=== PATIENT | female | born 1985 | race Caucasian/White ===

== ENCOUNTER → 2019-02-09 15:50 | Outpatient (CLI) | payer OTHER, SELFPAY ==
[2017-05-04 19:06] VITALS: BMI 24.1
[2019-02-09 22:08] LABS: Chlamydia Trachomatis by PCR Negative (Negative); Neisserai gonorrhoeae by PCR Negative (Negative); Probe Check PASS; Sample Adequacy Control PASS; Specimen Processing Control PASS
[2019-02-14 16:10] LABS: HPV Reflexed? NOT INDICATED
== END ==
PROVIDERS: Visit Provider Obstetrics & Gynecology
DX: Z12.4 Encounter for screening for malignant neoplasm of cervix (principal); Z11.3 Encounter for screening for infections with a predominantly sexual mode of transmission
CPT/HCPCS: 87491; 87591; 87624; 88175; G0145

== ENCOUNTER → 2019-02-15 | Outpatient (CLI) | payer OTHER, SELFPAY ==
[2017-05-04 19:06] VITALS: BMI 24.1
[2019-02-15 13:51] LABS: Absolute Lymphocyte Count 1.45 X10^3/ul (0.83-4.51); Absolute Neutrophil Count 4.3 X10^3/uL (2.0-7.7); Basophil# 0.02 X10^3/uL; Basophil% 0.3 % (0-1); Eosinophil# 0.06 X10^3/uL; Hematocrit 37.6 % (37-47); Hemoglobin 12.7 g/dl (12.0-15.0); Lymphocyte # 1.45 X10^3/ul (4.0); Lymphocyte % 23.1 % (19-41); Mean Corp Hgb Conc 33.8 g/gl (32-36); Mean Corpuscular Hgb 28.3 pg (27.0-32.0); Mean Corpuscular Volume 83.9 fL (81-99); Mean Platelet Vol. 9.8 fl (6.2-12.0); Monocyte# 0.46 X10^3/uL; Monocyte% 7.3 % (0-10); Neutrophil # 4.27 X10^3/uL (2.7-7.7); Neutrophil % 68.1 % (47-70); Platelet Count 313 K/mm3 (150-450); RBC Distribution Width CV 13.5 % (11.6-14.6); RBC Distribution Width SD 40.7 fl (35.1-43.9); Red Blood Count 4.48 M/mm3 (4.2-5.4); White Blood Count 6.3 K/mm3 (4.4-11.0)
[2019-02-15 13:52] LABS: Color, Urine Yellow (Yellow); Glucose, Dipstick Normal (Normal); Ketone-Dipstick Negative (Negative); Leukocyte Esterase-Dipstick Negative /ul (Negative); Nitrite-Dipstick Negative (Negative); Occult Blood-Urine Negative /ul (Negative); POSITIVE COUNT NO; POSITIVE DIFFERENTIAL NO; POSITIVE MORPHOLOGY NO; Protein-Dipstick Negative (Negative); Specific Gravity, Urine 1.005 (1.002-1.030); Urine Bilirubin Dipstick Negative (Negative); Urine Clarity Clear (Clear); Urine Urobilinogen Normal (Normal)
[2019-02-15 14:01] LABS: COTININE Drug Screen Negative (<200 ng/mL)
[2019-02-15 14:05] LABS: Amphetamine Urine VISTA NEGATIVE (<1000 ng/mL); Barbiturate Urine VISTA NEGATIVE (< 200 ng/mL); Benzodiazepine Urine VISTA NEGATIVE (< 200 ng/mL); Cocaine Urine VISTA NEGATIVE (< 300 ng/mL); Ecstacy Urine VISTA NEGATIVE (< 500 ng/mL); Methadone Urine VISTA NEGATIVE (< 300 ng/mL); PCP Urine VISTA NEGATIVE (< 25 ng/mL); THC Urine VISTA NEGATIVE (< 50 ng/mL); Vista UDS pH Range 6
[2019-02-15 14:14] LABS: Thyroid Stim Hormone (TSH) 0.84 uIU/mL (0.358-3.74)
[2019-02-15 14:52] LABS: HIV - WCH Non-Reactive (Nonreactive); Rubella IgG 334.5 IU/mL; Vitamin D,25 Hydroxy 19.5 ng/mL (29.95-100.01)
[2019-02-16 09:12] LABS: HEPATITIS B SURFACE AG Negative (Negative); Hep C Antibodies <0.1 s/co ratio (0.0-0.9)
[2019-02-17 02:32] LABS: Prenatal RPR NONREACTIVE (NONREACTIVE)
== END | disposition home or self-care (01) ==
LOC: WOBLAB 11:54
PROVIDERS: Visit Provider Obstetrics & Gynecology
DX: Z34.81 Encounter for supervision of other normal pregnancy, first trimester (principal)
CPT/HCPCS: 36415; 80307; 81002; 82306; 84443; 85025; 86703; 86762; 86803; 87340

== ENCOUNTER 2019-09-27 05:32 | Inpatient (IN) | payer OTHER, SELFPAY ==
--- NOTE | 2019-09-26 20:03 | PCM.HP.BLA ---
History and Physical Date of Admission: 09/27/19 [facility] [place] PHYSICAL (09/26/2019) Name: JORGE HAYSINE History of this : This is a 33 yo pt who presents for her second at 39 weeks gestation. PNC unremarkable. OB Physician: KORY 's Physician: RAY Preston.................................................................... : 1985 Age: 33 Address: [address] [place] [address] Phone: (h) [phone] ([phone] Insurance Carrier: [employer] [id number] Emergency Contact: BASIA HAYS [phone] ...................................................................... Final JALYN: 10/03/19 By Ultrasound: 7 weeks 1 day PARITY: (G-Total Pregnancies P-Fullterm,Premature,Induced AB,Spont AB, Ectopics, Multiple,Living) JALYN CONFIRMATION: By LMP: 12/22/18 Initial Exam: 09/28/19 By First Ultrasound Exam: 10/03/19 Final JALYN: 10/03/19 OB PROBLEM LIST: Declines AFP and CF. EPDS 2. Prior CS, --plan repeat Slight dilation renal pelvices at 20 weeks; recheck u/s at 28-32 weeks --right renal pelvis 6.5 mm at 31 weeks ALLERGIES: mejia Facial swelling No Known Drug Allergies Strattera Severe nausea & vomiting MEDICATIONS: 28 mg iron-800 mcg tablet One pill by mouth once a day Unisom (doxylamine) 25 mg tablet One pill by mouth once a day prn with Vit B6 50 mg SOCIAL HISTORY: Smoking - Never Alcohol Use - occasionally not while Diet - moderate, balanced diet, caffeine < 2 drinks per day and Water intake usually tries for 4 16oz bottles of water daily. 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 Illicit Drug Use - denies use of street drugs Sexual Activity - Residence - owns a home Place of - [place] Hours Worked - 50 hours per week Spouse-Sig Other Name - Basia Spouse-Sig Other Occupation - [employer] Spouse-Sig Other Phone No - [phone] Children Name(s) - Agustin PRIOR DELIVERY HISTORY DEL DATE GEST LAB WT LB WT OZ TYPE ANES LABOR TX 20 Mar 15 41 24 8 0 C-Sec Epidural No ANTEPARTUM FLOW CHART VISIT GE RTC FU F F TN U U DATE WK MD WKS HT PN HR M SS BP ED WT TN GL D EF ST __ ____ ___ __ __ ___ __ __ __ ___ __ __ __ ___ __ 21 Aug JMW 1 37 + + 116/68 sl 167 - - Aug KW 1 36 + + 124/84 tr 166 - - Aug JMW 1 35 + + 108/72 0 164 tr - Jul JMW 2 33 + + 112/74 sl 163 - - Aug 29 JMW 3 31 + + 116/70 0 160 - - Jul 27 JMW 3 28 + + 114/64 0 159 - - Jun 22 JMW 4 24 + + 98/60 0 155 - - May 19 JMW 4 20 + + 124/78 0 150 - - Apr 14 JMW 4 16 + + 96/54 0 144 - - Mar 10 JMW 4 + ? 100/64 0 141 - - Feb 03 JMW 5 U+ US 116/72 0 136 - - ANTEPARTUM NOTE(S): Sep 19 2019: Doing Well Sep 11 2019: Ctxs-occas, Good FM Sep 04 2019: Doing Well, Good FM Aug 21 2019: see note, no ctxs now Aug 02 2019: round ligament pain, doing well Jul 11 2019: Doing Well, 1hrGTT/CBC today Jun 13 2019: Glucola/Instructions Given,Good FM,Sleeping Better May 17 2019: Sono Today,Good FM,Feeling Well Apr 18 2019: Doing Well, Declines AFP Mar 21 2019: Periodic nausea continues Feb 15 2019: Sono, NOB and PNV COMPREHENSIVE ANTEPARTUM NOTE(S): Sep 11 2019: Feeling well; reports active FM; denies VB, LOF; feeling frequent UC s, VE per pt request /-3, medium consistency, posterior; discussed warning signs, s/s Labor, when to call, come in; RTO 2 weeks for PNV - KVW Sep 08 2019: Masha is here for a add on NST for decreased FM at 36 w 3 d. She reports that some decreased FM last evening, but she noticed it more this morning; she has felt a few more movements since I called in today. EEFM/NST explained. She denies spotting, and states that she notes some occasional mild cramping especially when my bladder is full. No edema noted. NST reactive, read per Dr. Conti. AW Sep 04 2019: Masha is here for a appointment. Baby is moving good and no swelling is reported. Urine came back as tr -. Masha reports an incident that happened at her workplace today. She says that she got very light headed and dizzy feeling, the nurse checked BP which was fine. After she ate and rested she felt better. Also reported a rash that is very itchy and irregular BM's. MK Aug 21 2019: Pt is being seen for PNV. She complains of swelling in her face, almost as she was pumped with fluids. She also states she was vomiting Wednesday08-19-19 and had a temp no higher than 100.2 which tylenol brought down. She also complains of lower back and pelvic pain. She also woke up with sharp pain in her frontal portion of head. She will be leaving this week for [place] and wants to make sure it is still fine for her to go. Cervical check preferred. AM Apr 18 2019: Pt presents for her PNV. She is reporting +FM noted daily. Pt is c/o constipation and I reviewed the importance of a minimum of 1gal H20 daily as well as may add Colace 1 qd to aid with this. She is also noting some mild muscle cramps in her lower back/calves and discussed that she likely just needs to increase her fluids. Pt agreeable to same. JT Feb 15 2019: Masha is here for NOB nurse visit with JALYN 10-03-2019 planning a RCS at [facility] with spinal, using Dr Rush for post disch ped care and to breastfeed. Masha is a G 2 P 1 who is to Basia. 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 Their son Agustin is almost 2y. They are pleased about the pg. Masha is allergic to Strattera (taken in high school) and mejia. She has no latex allergy. She does have some seasonal allergies. Her diet is well balanced and she states I try to eat clean. She has one cup of coffee today and about 4 16 oz bottles of water daily. Advised increasing fluids to close to one gal daily wild when the weather gets warmer. She is a lifetime non smoker, occ drinks alcohol but not in pg and denies street drug use. She does regular exercise. Genetics Screening form completed noting no family issues and she declines AFP and CF tests. Warning signs in pg reviewed along with otc meds ok to take, lifting restriction of 20-25#, wearing seatbelt very low on her abdomen, importance of protein in her diet and reaching our office after hours w understanding voiced. She has a copy of What to Expect. US and routine labs drawn today. She's had chickenpox and they have no cats. She is aware of litter box issues. EPDS score 2. Enc to call w any concerns. Visit took approx 45 min. Annalise DUONG. NEW Feb 10 2019: GC and chlamydia NEG EB Feb 09 2019: ok Feb 09 2019: Masha presents here today for Missed Menses appointment. 33 y.o. G 2 P 1 non-smoker with regular menses and LMP of 12-22-18 lasting her average of 5 days. UPT is positive today in our Office. Presents at 7 weeks by LMP with an approximate JALYN of 09-28-19. Plans to have repeat at [facility]. Reports having daily nausea and taking Unisom with Vitamin B6 and is helping, as well as daily fatigue and tender breasts. Currently taking an OTC Vitamin and Educational Materials given. History of normal pap screening with last in 2015. Medication list up-dated. PAVAN REVIEW OF SYSTEMS: GENERAL - Denies fever, or chills SKIN - Denies rash, new skin lesions, or change in moles EYES - Denies blurred vision, or change in visual acuity EARS - Denies ear pain, or difficulty hearing NOSE - Denies nasal congestion, discharge, or bleeding MOUTH - Denies sore throat, or difficulty swallowing NECK - Denies pain or swelling RESPIRATORY - Denies shortness of breath, cough, wheezing CARDIOVASCULAR - Denies palpitations, chest pain, orthopnea, PND, peripheral edema, syncope or claudication GASTROINTESTINAL - Denies nausea, vomiting, diarrhea, constipation, Denies abdominal pain, melena and or bright red blood GENITOURINARY - Denies dysuria, frequency of urination, urgency, or hesitancy MUSCULOSKELETAL - Denies joint or muscle pain, or back pain NEUROLOGICAL - Denies localized numbness, weakness, or tingling PSYCHIATRIC - Denies depression, anxiety, substance abuse or suicide attempts ENDOCRINE - Denies heat or cold intolerance, weight loss or gain, increasing thirst HEMATO-IMMUNOLOGIC - Denies easy bruising, bleeding, oral ulcerations or recurrent infections GENETICS SCREENING: Age 35+ years: No Thalassemia: No Neural Tube Defect: No Down Syndrome: No VIOLET-SACHS: No Sickle Cell Disease: No Hemophilia: No Musc. Dystrophy: No Cystic Fibrosis: No-declines screening [place] Chorea: No Mental Retardation: No Fragile X: No Other genetic: No Other defects: No SABs/still births: No Drugs since LMP: No INFECTION HISTORY: High risk AIDS: No High risk Hepatitis: No Exposed to TB: No Exposed to Herpes: No Rash/viral illness since LMP: No History of STD: No MENSTRUAL HISTORY: *Menses Amount/Duration: 3-7 daysMenses Regularity: regularFrequency: monthlyMenarche (Age Onset): 16* PAST SUMMARY: PARITY: 1. Total Pregnancies............ 2 2. Full Term Pregnancies........ 1 3. Premature.................... 0 4. Abortions - Induced.......... 0 5. Abortions - Spontaneous...... 0 6. Ectopics..................... 0 7. Multiple Births.............. 0 8. Living Children.............. 1 PAST #1: Date of :.................. 03/18/17 Gestation Weeks:................ 41 Length of labor(hours):......... 24 Sex:............................ M Weight-lbs:............... 8 Weight-oz:................ 0 Type of Delivery:............... C-Sect Type of Anesthesia:............. Epidural Place of Delivery:.............. [place] Treatment of Labor?:.... No Comment: NO PHYSICAL EXAMINATION General Appearence: 33 yo female in no acute distress Vital Signs: AF, VSS Heart: RRR without rubs or gallops Lungs: CTA x 2 Breasts: deferred Abdomen: gravid Pelvis: Cervix: not examined Presentation: cephalic Station: not examined Fetus: Size: AGA Movement: present Heart: present Labs for : MASHA HAYS since 01/06/2019 ORDER DATEIN DESCRIPTION VALUE UNITS RANGE A+ COMMENT GLUCOSE CHALLENGE 50GM 1 HOUR 07/11/19 NOTE Original Ordering Provider: PRAVIN CONTI GLUCOSE CHALLENGE 50GM 1 HOUR GLUCOSE CHALLENGE 50 GMS 1 HOUR GLUCOSE 1HR 66 mg/dl 70 - 140 L Reviewed by GLORIA CBC + DIFF 07/11/19 NOTE Original Ordering Provider: PRAVIN CONTI CBC + DIFF CBC-COMPLETE BLOOD COUNT WBC 8.2 x 10EE3/UL 4.5 - 10.8 RBC 4.00 x 10EE6/UL 4.10 - 5.30 L HEMOGLOBIN 11.0 g/dl 12.0 - 16.0 L HEMATOCRIT 32.7 % 34.0 - 46.0 L MCV 82 fl 80 - 99 MCH 28 pg 27 - 33 MCHC 34 X10 3 32 - 36 RDW/CV 14.6 % 12.0 - 15.6 PLATELET 283 x10EE3/UL 150 - 450 MPV 8.0 fl 6.6 - 10.5 AUTOMATED DIFFERENTIAL NEUT % 79.8 % 46.0 - 76.0 H LYMPH % 13.3 % 20.0 - 45.0 L MONOS % 6.0 % 0.0 - 10.0 EO % 0.4 % 0.0 - 7.0 BASO % 0.5 % 0.0 - 2.0 LYMPH # 1.10 x10EE3/UL 0.80 - 2.80 NEUT # 6.60 x10EE3/UL 1.50 - 7.10 MONO # 0.50 x10EE3/UL 0.20 - 1.00 EO # 0.00 x10EE3/UL 0.00 - 0.50 BASO # 0.00 x10EE3/UL 0.00 - 0.10 MANUAL DIFF N/A MORPHOLOGY N/A Reviewed by GLORIA RPR 02/15/19 NOTE Original Ordering Provider: Pravin Conti RPR NONREACTIVE NONREACTIVE Reviewed by ZEESHAN HEPATITIS C ANTIBODIES 02/15/19 NOTE Original Ordering Provider: Pravin Conti HEP C AB <0.1 s/co ratio 0.0-0.9 Negative: < 0.8 Indeterminate: 0.8 - 0.9 Positive: > 0.9 The CDC recommends that a positive HCV antibody result be followed up with a HCV Nucleic Acid Amplification test (977009). Reviewed by PRAVIN HEPATITIS B SURFACE AG 02/15/19 NOTE Original Ordering Provider: Pravin Conti HB SURF AG Negative Negative Performed at: [address] [id number] Director Of Consulting Services: Addison Galindo PhD, Phone: [phone] Reviewed by PRAVIN MAGAÑA T AND S-NO CHARGE W/PNP 02/15/19 Reason for Type AND Screen/Red Cells: Surgery? [facility]~[address] [place], [address]~ BLOOD TYPE GEL O POSITIVE N AB SCREEN GEL NEGATIVE N Reviewed by PRAVIN HIV - [facility] 02/15/19 NOTE Original Ordering Provider: Pravin Conti HIV - [facility] Non-Reactive Nonreactive Reviewed by PRAVIN RUBELLA IGG 02/15/19 NOTE Original Ordering Provider: Pravin Conti RUBELLA IGG 334.5 IU/mL Antibody results Interpretation of Immune Status < 5 IU/ml Presumed Non-immune 5 - < 10 IU/ml Equivocal > or = 10 IU/ml Presumed Immune Reviewed by PRAVIN VITAMIN D,25 HYDROXY 02/15/19 NOTE Original Ordering Provider: Pravin Conti VITAMIN D 25-OH 19.5 ng/mL 29.95-100.01 L Vitamin D 25(OH) Status Range Deficiency <20 ng/mL (50nmol/L) Insufficiency 20 - 30 ng/mL (50 - 75 nmol/L) Sufficiency 30 - 100 ng/mL (75 - 250 nmol/L) Toxicity >100 ng/mL (>250 nmol/L) Reviewed by PRAVIN THYROID STIM HORMONE (TSH) 02/15/19 NOTE Original Ordering Provider: Pravin Conti TSH 0.84 uIU/mL 0.358-3.74 Reviewed by PRAVIN NICOTINE URINE DRUG SCREEN 02/15/19 NOTE Original Ordering Provider: Pravin Conti TO BE CONFIRMED CONFIRMATORY TESTING FOR ALL POSITIVE URINE DRUG SCREEN RESULTS WILL ONLY BE SENT OUT UPON PHYSICIAN ORDER. The results of Urine Drug Screen methods provide only preliminary analytical test results. A more specific alternate chemical method must be used in order to obtain a confirmed analytical result. Gas chromatography/mass spectrometery (GC/MS) is the preferred confirmatory method. Clinical consideration and professional judgement should be applied to any drug of abuse test result, particularly when preliminary positive results are used. COT DRG SCREEN Negative <200 ng/mL Cotinine is the first-stage metabolite of Nicotine. Reviewed by PRAVIN URINE DRUG SCREEN (VISTA) 02/15/19 NOTE Original Ordering Provider: Pravin Conti TO BE CONFIRMED CONFIRMATORY TESTING FOR ALL POSITIVE URINE DRUG SCREEN RESULTS WILL ONLY BE SENT OUT UPON PHYSICIAN ORDER. VISTA Urine Drug Screen methods provide only preliminary analytical test results. A more specific alternate chemical method must be used in order to obtain a confirmed analytical result. Gas chromatography/mass spectrometery (GC/MS) is the preferred confirmatory method. Clinical consideration and professional judgement should be applied to any drug of abuse test result, particularly when preliminary positive results are used. URINE TCA TESTING MUST BE ORDERED SEPARATELY. USE TEST MNEMONIC: [place] UDS PH 6 AMPHETAMINES NEGATIVE <1000 ng/mL BARBITIURATES NEGATIVE < 200 ng/mL BENZODIAZIPINE NEGATIVE < 200 ng/mL COCAINE NEGATIVE < 300 ng/mL ECSTACY NEGATIVE < 500 ng/mL METHADONE NEGATIVE < 300 ng/mL OPIATES NEGATIVE < 300 ng/mL PCP NEGATIVE < 25 ng/mL THC NEGATIVE < 50 ng/mL Reviewed by PRAVIN URINALYSIS, ROUTINE (DIPSTICK) 02/15/19 NOTE Original Ordering Provider: Pravin Conti COLOR Yellow Yellow CLARITY Clear Clear GLUCOSE, UR Normal mg/dl Normal BILIRUBIN URINE Negative mg/dL Negative KETONE UR Negative mg/dl Negative SP.GR. DIPSTX 1.005 1.002-1.030 PH UR 7.0 5.0 - 8.0 PROT DIPSTX Negative mg/dl Negative UROBILI Normal mg/dl Normal NITRITE UR Negative Negative OCCULT BLOOD-UR Negative /ul Negative LEUK ESTERASE Negative /ul Negative Reviewed by PRAVIN CBC W/DIFF, AUTOMATED 02/15/19 NOTE Original Ordering Provider: Pravin Conti WBC 6.3 K/mm3 4.4-11.0 RBC 4.48 M/mm3 4.2-5.4 HGB 12.7 g/dl 12.0-15.0 HCT 37.6 % 37-47 MCV 83.9 fL 81-99 MCH 28.3 pg 27.0-32.0 MCHC 33.8 g/gl 32-36 RDW CV 13.5 % 11.6-14.6 RDW SD 40.7 fl 35.1-43.9 PLT 313 K/mm3 150-450 MPV 9.8 fl 6.2-12.0 NEUT% 68.1 % 47-70 LY% 23.1 % 19-41 MONO% 7.3 % 0-10 EO% 1.0 % 0-5 BASO% 0.3 % 0-1 IM GRAN % 0.200 % 0.0-0.9 IG% - Immature Granulocytes (promyelocytes, myelocytes and metamyelocytes) > 1% indicates that a LEFT SHIFT is Present. ABSOLUTE NEUT 4.3 X10 3/uL 2.0-7.7 ABSOLUTE LYMPH 1.45 X10 3/ul 0.83-4.51 Reviewed by PRAVIN PAP IG W/REFLEX HR HPV APTIMA 02/09/19 NOTE Original Ordering Provider: Pravin Conti DIAGN . NEGATIVE FOR INTRAEPITHELIAL LESION OR MALIGNANCY. ADEQ . Satisfactory for evaluation. Endocervical and/or squamous metaplastic cells (endocervical component) are present. PERFORM . Zohreh Oropeza Cryptologic Technician Technical (ASCP) TEST METHOD . This liquid based ThinPrep(R) pap test was screened with the use of an image guided system. COMM . . PAPSMR . The Pap smear is a screening test designed to aid in the detection of premalignant and malignant conditions of the uterine cervix. It is not a diagnostic procedure and should not be used as the sole means of detecting cervical cancer. Both false-positive and false-negative reports do occur. HPV RFLX . The HPV DNA reflex criteria were not met with this specimen result therefore, no HPV testing was performed. Performed at: [address] [id number] Director Of Consulting Services: Elvira King MD, Phone: [phone] Reviewed by PRAVIN NASH/KIKA [facility] BY PCR 02/09/19 NOTE Original Ordering Provider: Pravin MENON [facility] PCR Negative Negative [facility] BY PCR Negative Negative Reviewed by JENNIFER Impression /Plan: 39 week intrauterine for repeat . Preparations in progress for delivery.
[2019-09-27] VITALS (22 sets, daily range): BP systolic 102–121; BP diastolic 57–80; PULSE 58–96; RESP 14–18; TEMP 36.3–36.9; O2SAT 95–100; BMI 27.8
[2019-09-27] MEDS: Lactated Ringers 1,000 ML 999 ML IV (05:50)
[2019-09-27 06:48] LABS: Absolute Lymphocyte Count 1.74 X10^3/uL (0.83-4.51); Basophil# 0.04 X10^3/uL; Basophil% 0.5 % (0-1); Eosinophil# 0.21 X10^3/uL; Eosinophils% 2.4 % (0-5); Hematocrit 38.6 % (37-47); Hemoglobin 12.5 g/dL (12.0-15.0); Lymphocyte # 1.74 X10^3/ul (4.0); Lymphocyte % 20.1 % (19-41); Mean Corp Hgb Conc 32.4 g/dL (32-36); Mean Corpuscular Hgb 26.9 pg (27.0-32.0); Mean Corpuscular Volume 83.2 fL (81-99); Mean Platelet Vol. 10.4 fl (6.2-12.0); Monocyte# 0.66 X10^3/uL; Monocyte% 7.6 % (0-10); NRBC Flagged by Analyzer 0 % (0-5); Neutrophil # 5.98 X10^3/uL (2.7-7.7); Neutrophil % 68.9 % (47-70); Platelet Count 226 K/mm3 (150-450); RBC Distribution Width CV 15.5 % (11.6-14.6); RBC Distribution Width SD 46.1 fl (35.1-43.9); Red Blood Count 4.64 M/mm3 (4.2-5.4); White Blood Count 8.7 K/mm3 (4.4-11.0)
[2019-09-27] MEDS: Sodium Citrate/Citric Acid 30 ML UDC PO (07:03)
[2019-09-27] MEDS: Cefazolin 2 GM in 0.9% Normal Saline 100 ML IV (07:04)
--- NOTE | 2019-09-27 08:25 | PCM.OPRPT ---
Report of Operation Date of Procedure: 09/27/19 Pre-Operative Diagnosis: Prior Section Post-Operative Diagnosis: Prior Section Surgery/Procedure Performed:: Repeat Low Transverse Cervical Section Description of Surgical Findings:: Viable male with Apgars of 8/9 in an occiput anterior presentation with clear amniotic fluid and umbilical cord tangled around the baby's feet. strategic debriefing specialist: Charbel Fonseca Type of Anesthesia:: Spinal - With Duramorph Anesthesiologist: Mily Klein Specimen's removed: [facility] Drains: Rubio to straight drain Estimated Blood Loss (mL): 500 cc Fluids Replaced: Crystalloid Description of Procedure: Surgeon: Silviano Conti MD, FACOG Indication: This is a 33-year-old who presents for her second at 39+ weeks gestation. care has otherwise been uneventful. The patient has been counseled regarding the risk and indications of this procedure including the possibility of bleeding infection and injury to surrounding structures such as bowel bladder. All questions were answered. Procedure: Patient was taken to the operating room where after spinal anesthesia was placed, the patient was prepped and draped in usual sterile fashion and a Rubio catheter was placed. The abdomen was entered through the patient's prior Pfannenstiel incision and peritoneum was entered bluntly. After developing a bladder flap on the lower uterine segment a low transverse incision was made on the uterus and head which was low was easily delivered onto the operative field with the assistance of a Kiwi vacuum suction. The nose mouth and oropharynx were bulb suctioned. Subsequently a viable male infant was born with Apgars of 8/9. The was noted to cry move all extremities vigorously on the operative field. The umbilical cord was doubly clamped and ligated and infant handed to the nursery personnel who were present for the delivery. Placenta was delivered and noted to be 3 vessels and normal. Uterus was exteriorized and remaining placental tissue was removed. The uterus was then closed in 2 layers first with running locked 0 Vicryl suture followed by a second imbricating layer with 0 Vicryl suture. 0 Vicryl suture was then used in a horizontal mattress interrupted fashion to affect final hemostasis of the uterine incision line. Normal fallopian tubes and ovaries were visualized and the uterus was returned to the pelvis. Hemostasis was noted and rectus abdominis muscles were reapproximated in the midline with interrupted Number 0 Vicryl suture in a horizontal mattress fashion. Fascia was closed with running Number 1 PDS Strata fix suture. Subcutaneous tissue was irrigated with copious amounts of saline solution and then closed with running 3-0 Vicryl suture. Skin was closed with 4-0 monocryl suture in a running subcuticular fashion. Steri strips and Mepilex were placed across the incision. The patient tolerated the procedure well and was taken to the recovery room in satisfactory condition. Sponge, needle, and instrument counts were all reportedly correct. EBL was less than 500 cc. Ancef 2 gms IV was given prior to the procedure. Spicemen to Pathology: None Complications: None Grafts/Implants Used: None - Complications None - Admit VTE Documentation VTE Present on Admission: Yes VTE Mechan Device Prophylaxis: SCD's VTE Pharm Prophylaxis ordered?: Yes
[2019-09-27] MEDS: Oxytocin 30 units/NS 500 ml 30 UNITS/500 ML IV.SOLN 167 UNITS IV (08:30)
--- NOTE | 2019-09-27 08:30 | DCINST_ITS ---
<Silviano Conti - Last Filed: 09/27/19 08:30> Discharge Diet: No Restrictions Discharge Activity: May not drive while taking narcotic pain medications., May Shower, May Take a Tub Bath May resume sexual activity in: 4-6 weeks Lifting Restrictions: 20 pounds Additional Activity Instructions:: Nothing in the vagina for 4-6 weeks. You may return to work/school in 6 weeks. Call your doctor if your incision/area has: Continuous Slow Oozing, Sudden Increased Bleeding, Increased Pain/ Swelling, Increased Redness, Foul Smelling Discharge Call your doctor if you observe: Fever of 101 or Higher, Inability to urinate, Inability to have a bowel movement, Using more than one pad per hour Instructions: After a , Nutrition While , Understanding Depression, at Home Additional Instructions: If you experience any of the following, contact your healthcare provider. * Bleeding that soaks a pad every hour for 2 hours * Unrelieved incision or abdominal pain * Swelling, redness, discharge or bleeding from your incision or episiotomy site * Your incision begins to separate * Problems urinating (including inability to urinate or burning while urinating). * Visual changes * Severe headache * Flu-like symptoms * Pain or redness in one of both of your breasts * Pain, warmth, tenderness or swelling in your legs, especially the calf area * Frequent nausea and vomiting * Symptoms of depression or anxiety If you experience any of the following, call 911 or go to the nearest Emergency Room. * Chest pain * Problems breathing * Seizure activity * Partial or complete paralysis of a body part, slurred speech, weakness or drooping of the face, or a sudden inability to walk or hold your balance Allergies/Adverse Reactions: Allergies atomoxetine [From Strattera] Adverse Reaction (Verified 05/04/17 19:06) Nausea and vomiting Mangos Allergy (Uncoded 05/04/17 19:06) Anaphylaxis Medications to take at Discharge Vits [Prenatabs FA ] 1 tablet PO DAILY 03/01/17 Docusate Sodium [Colace] 100 mg PO PRN PRN 05/04/17 B6/FA/B12/Co Q10/Herb No.225 [Healthy Heart Complex Tablet] 1 ea PO PRN PRN 09/27/19 Doxylamine Succinate [Unisom] 25 mg PO PRN PRN 09/27/19 Oxycodone [Oxyir] 5 mg PO Q6H PRN PRN 7 Days #14 tab 09/27/19 The following prescriptions were given: Oxycodone [Oxyir] 5 mg PO Q6H PRN PRN 7 Days #14 tab PRN Reason: Pain Score 6-10/10 Prescription Printed Follow-Up: Call to make an appointment with your doctor for an incision check in 1-2 weeks. You will also need a 6 week post- follow up appointment. Test results from this visit will be discussed in further detail at your follow- up appointment, if applicable. Please Follow Up With: Silviano oCnti MD - [phone] When: Call to make an appointment for an incision check in 2 weeks. Primary Care Physician: Lul Manzano DO [Primary Care Provider] - <Savannah Cruz - Last Filed: 09/29/19 08:57> Additional Instructions: If you experience any of the following, contact your healthcare provider. * Bleeding that soaks a pad every hour for 2 hours * Fever 100.4 or higher * Unrelieved incision or abdominal pain * Swelling, redness, discharge or bleeding from your incision or episiotomy site * Your incision begins to separate * Problems urinating (including inability to urinate or burning while urinating). * Visual changes * Severe headache * Flu-like symptoms * Pain or redness in one of both of your breasts * Pain, warmth, tenderness or swelling in your legs, especially the calf area * Frequent nausea and vomiting * Symptoms of depression or anxiety If you experience any of the following, call 911 or go to the nearest Emergency Room. * Chest pain * Problems breathing * Seizure activity * Partial or complete paralysis of a body part, slurred speech, weakness or drooping of the face, or a sudden inability to walk or hold your balance Follow-Up: Call to make an appointment with your doctor for an incision check in 1-2 weeks. You will also need a 6 week post- follow up appointment. Test results from this visit will be discussed in further detail at your follow- up appointment, if applicable.
[2019-09-27] MEDS: Ondansetron ODT 4 MG Tablet PO (09:11)
[2019-09-27] MEDS: DiphenhydrAMINE 25 MG Capsule PO ×2 (10:22→17:24)
[2019-09-27] MEDS: Lactated Ringers 1,000 ML 100 ML IV (12:37)
[2019-09-27] MEDS: Ketorolac 30 MG/ML Syringe IV ×2 (15:09→20:21)
[2019-09-27] MEDS: Cefazolin 1 GM/50 ML BAG IV ×2 (15:12→23:45)
[2019-09-27] MEDS: 0.9% Saline Lock 10 ML Syringe IV ×2 (20:22→23:46)
[2019-09-27] MEDS: Enoxaparin 30 MG/0.3 ML Syringe SC (21:57)
[2019-09-28] VITALS (7 sets, daily range): BP systolic 101–110; BP diastolic 55–62; PULSE 76–89; RESP 15–16; TEMP 36.3–36.9; O2SAT 97–99
--- NOTE | 2019-09-28 00:11 | NURSING ---
0005 Assisted pt up to BR, tolerated well. Pericare and s/s to report reviewed with pt. verbalized understanding.
[2019-09-28] MEDS: Ketorolac 30 MG/ML Syringe IV ×4 (02:41→20:40)
[2019-09-28] MEDS: 0.9% Saline Lock 10 ML Syringe IV ×3 (02:41→15:03)
[2019-09-28 07:36] LABS: Hematocrit 31.8 % (37-47); Hemoglobin 10.4 g/dL (12.0-15.0); Mean Corp Hgb Conc 32.7 g/dL (32-36); Mean Corpuscular Hgb 27.5 pg (27.0-32.0); Mean Corpuscular Volume 84.1 fL (81-99); Mean Platelet Vol. 9.2 fl (6.2-12.0); Platelet Count 179 K/mm3 (150-450); RBC Distribution Width CV 15.5 % (11.6-14.6); RBC Distribution Width SD 46.8 fl (35.1-43.9); Red Blood Count 3.78 M/mm3 (4.2-5.4); White Blood Count 8.6 K/mm3 (4.4-11.0)
--- NOTE | 2019-09-28 09:01 | PCM.PN.OB ---
Subjective: Patient without complaints. Tolerating diet well. Positive flatus. Minimal vaginal bleeding. Pain well controlled - Physical Exam Vitals/I&O's: Vital Signs Temp Pulse Resp BP Pulse Ox 98.0 F 76 16 110/58 L 97 09/28/19 08:30 09/28/19 08:30 09/28/19 08:30 09/28/19 08:30 09/28/19 08:30 Oxygen Delivery Method Room Air Weight: 166 lb 14.239 oz Body Mass Index (BMI) 27.8 Intake and Output for Last 24 Hours 09/26/19 09/27/19 09/28/19 23:59 23:59 23:59 Intake Total 3041.67 / 3041.67 50 / 50 Output Total 2900 / 2900 1100 / 1100 Balance 141.67 / 141.67 -1050 / -1050 Comment: Wound is CDI. Good urine output. Hemoglobin okay. Laboratory Results 09/28/19 07:25: WBC 8.6, RBC 3.78 L, Hgb 10.4 L, Hct 31.8 L, MCV 84.1, MCH 27.5, MCHC 32.7, RDW Std Deviation 46.8 H, RDW Coeff of Cristina 15.5 H, Plt Count 179, MPV 9.2 Current Medications Acetaminophen (Tylenol) 1,000 mg PO Q8H PRN PRN Reason: Pain Score 1-3/10 Bisacodyl (Dulcolax) 10 mg RECTAL UD PRN PRN Reason: If no BM Diphenhydramine HCl (Benadryl) 25 mg PO TID PRN PRN PRN Reason: ITCHING Last Admin: 09/27/19 17:24 Dose: 25 mg Documented by: Docusate Sodium (Colace) 100 mg PO DAILY PRN PRN Reason: CONSTIPATION Hydrocortisone (Hytone) 1 applic TOPICAL TID PRN PRN; Protocol PRN Reason: Discomfort Lactated Ringer's () 1,000 mls @ 100 mls/hr IV .Q10H DEMAR Last Admin: 09/28/19 09:01 Dose: Not Given Documented by: Naloxone HCl 4 mg/ Dextrose 504 mls @ 0 mls/hr IV .Q0M PRN; Protocol PRN Reason: To maintain Resp. rate >10 Ibuprofen (Motrin) 600 mg PO Q6H PRN PRN PRN Reason: Pain Score 1-3/10 Ketorolac Tromethamine (Toradol) 30 mg IV Q6H DEMAR Stop: 09/29/19 08:01 Last Admin: 09/28/19 02:41 Dose: 30 mg Documented by: Methylergonovine Maleate (Methergine) 0.2 mg IM X1 PRN PRN Reason: Uterine Atony Naloxone HCl (Narcan) 0.02 mg IV Q1M PRN PRN Reason: RR <10 and pt unresponsive Ondansetron HCl (Zofran) 4 mg IV Q4H PRN PRN PRN Reason: Nausea Oxycodone HCl (Oxyir) 5 - 10 mg PO Q4H PRN PRN PRN Reason: Pain Score 4-10/10 Multivit/Folic Acid/Iron (Prenatabs Fa) 1 tablet PO DAILY@1200 DEMAR Last Admin: 09/27/19 16:19 Dose: Not Given Documented by: Prochlorperazine Edisylate (Compazine Iv) 10 mg IV Q6H PRN PRN PRN Reason: NAUSEA Senna/Docusate Sodium (Senokot-S, Sonali-Colace) 0 tablet PO DAILY PRN PRN Reason: Constipation Simethicone (Mylicon) 80 mg PO PCHS PRN PRN Reason: Indigestion/stomach pain Sodium Chloride () 5 - 15 ml IV UD PRN PRN Reason: SALINE FLUSH Last Admin: 09/28/19 02:41 Dose: 10 ml Documented by: Medical Necessity - Tobacco Use Smoking Status: Never smoker Assessment/Plan All Active Problems Delivered by section (Acute) Doing well postoperative day #1 status post repeat . Continuing present care.
[2019-09-28] MEDS: Senna/Docusate Sodium 1 Tablet PO (09:08)
[2019-09-28] MEDS: DiphenhydrAMINE 25 MG Capsule PO (09:08)
[2019-09-28] MEDS: Acetaminophen 500 MG Tablet 1000 MG PO (13:40)
[2019-09-28] MEDS: Prenatal Vits Tablet 1 TABLET PO (13:40)
[2019-09-29 01:56] VITALS: BP 111/63; PULSE 71; RESP 16; TEMP 36.6
[2019-09-29] MEDS: Ketorolac 30 MG/ML Syringe IV ×2 (02:08→08:36)
[2019-09-29] MEDS: Acetaminophen 500 MG Tablet 1000 MG PO (05:04)
[2019-09-29] MEDS: 0.9% Saline Lock 10 ML Syringe IV (08:37)
[2019-09-29 08:47] VITALS: BP 121/62; PULSE 68; RESP 16; TEMP 36.8
--- NOTE | 2019-09-29 08:53 | PCM.DC.SUM ---
Discharge Date and Diagnosis Date of Admission: 09/27/19 Date of Discharge: 09/29/19 - Secondary Discharge Diagnosis Chronic Problems Arrest of descent, delivered, current hospitalization (Chronic) Hospital Course and Treatment Operations: - - Low transverse section Summary of Care Provided: The patient is a 33 year old F [] Subjective: Feeling well and wants to discharge. will be home for help and support. son well with no concerns. Pain is well controlled, /. Objective: POD #2. VSS. Fundus u/2, firm, midline. Light lochia rubra. - Physical Exam Vitals/I&O's: Vital Signs Temp Pulse Resp BP Pulse Ox 98.2 F 68 16 121/62 H 97 09/29/19 08:47 09/29/19 08:47 09/29/19 08:47 09/29/19 08:47 09/28/19 08:30 Oxygen Delivery Method Room Air Weight: 75.7 kg Body Mass Index (BMI) 27.8 Intake and Output for Last 24 Hours 09/27/19 09/28/19 09/29/19 23:59 23:59 23:59 Intake Total 3041.67 / 3041.67 50 / 50 Output Total 2900 / 2900 1100 / 1100 Balance 141.67 / 141.67 -1050 / -1050 General: Alert, Oriented x3, Cooperative HEENT: Atraumatic, PERRLA, EOMI, Normocephalic Neck: Supple, No JVD, Negative Carotid Bruits Lungs: Clear to auscultation, Normal air movement Cardiovascular: Regular rate, No murmurs Abdomen: Bowel Sounds Present, Soft, Non Tender, Passing Flatus, - - fundus u/2 Extremities: No edema, Capillary Refill Less than 3 Seconds Skin: No rashes, No breakdown Musculoskeletal: No Tenderness to Palpation of Joints or Extremities Neurological: Cranial nerves II-XII grossly intact Psych/Mental Status: Normal Affect, Appropriate Current Medications Acetaminophen (Tylenol) 1,000 mg PO Q8H PRN PRN Reason: Pain Score 1-3/10 Last Admin: 09/29/19 05:04 Dose: 1,000 mg Documented by: Bisacodyl (Dulcolax) 10 mg RECTAL UD PRN PRN Reason: If no BM Diphenhydramine HCl (Benadryl) 25 mg PO TID PRN PRN PRN Reason: ITCHING Last Admin: 09/28/19 09:08 Dose: 25 mg Documented by: Docusate Sodium (Colace) 100 mg PO DAILY PRN PRN Reason: CONSTIPATION Hydrocortisone (Hytone) 1 applic TOPICAL TID PRN PRN; Protocol PRN Reason: Discomfort Naloxone HCl 4 mg/ Dextrose 504 mls @ 0 mls/hr IV .Q0M PRN; Protocol PRN Reason: To maintain Resp. rate >10 Ibuprofen (Motrin) 600 mg PO Q6H PRN PRN PRN Reason: Pain Score 1-3/10 Methylergonovine Maleate (Methergine) 0.2 mg IM X1 PRN PRN Reason: Uterine Atony Naloxone HCl (Narcan) 0.02 mg IV Q1M PRN PRN Reason: RR <10 and pt unresponsive Ondansetron HCl (Zofran) 4 mg IV Q4H PRN PRN PRN Reason: Nausea Oxycodone HCl (Oxyir) 5 - 10 mg PO Q4H PRN PRN PRN Reason: Pain Score 4-10/10 Multivit/Folic Acid/Iron (Prenatabs Fa) 1 tablet PO DAILY@1200 DEMAR Last Admin: 09/28/19 13:40 Dose: 1 tablet Documented by: Prochlorperazine Edisylate (Compazine Iv) 10 mg IV Q6H PRN PRN PRN Reason: NAUSEA Senna/Docusate Sodium (Senokot-S, Sonali-Colace) 0 tablet PO DAILY PRN PRN Reason: Constipation Last Admin: 09/28/19 09:08 Dose: 2 tablet Documented by: Simethicone (Mylicon) 80 mg PO PCHS PRN PRN Reason: Indigestion/stomach pain Sodium Chloride () 5 - 15 ml IV UD PRN PRN Reason: SALINE FLUSH Last Admin: 09/29/19 08:37 Dose: 10 ml Documented by: Discharge Diet: No Restrictions Discharge Activity: May not drive while taking narcotic pain medications., May Shower May resume sexual activity in: 4-6 weeks Additional Activity Instructions:: Nothing in the vagina for 4-6 weeks. You may return to work/school in 6 weeks. Call your doctor if your incision/area has: Continuous Slow Oozing, Sudden Increased Bleeding, Increased Pain/ Swelling, Increased Redness, Foul Smelling Discharge Call your doctor if you observe: Fever of 101 or Higher, Inability to urinate, Inability to have a bowel movement, Using more than one pad per hour Home Medications: Medications to take at Discharge Vits [Prenatabs FA ] 1 tablet PO DAILY 03/01/17 Docusate Sodium [Colace] 100 mg PO PRN PRN 05/04/17 B6/FA/B12/Co Q10/Herb No.225 [Healthy Heart Complex Tablet] 1 ea PO PRN PRN 09/27/19 Doxylamine Succinate [Unisom] 25 mg PO PRN PRN 09/27/19 Oxycodone [Oxyir] 5 mg PO Q6H PRN PRN 7 Days #14 tab 09/27/19 Following Prescrptions Were Given to Patient: Oxycodone [Oxyir] 5 mg PO Q6H PRN PRN 7 Days #14 tab PRN Reason: Pain Score 6-10/10 Prescription Printed Primary Care Physician: Lul Manzano DO [Primary Care Provider] - Please Follow Up With: Silviano Conti MD - [phone] When: Call to make an appointment for an incision check in 2 weeks. Patient Instructions: Nutrition While , at Home, Understanding Depression, After a Disposition: Home Minutes spent on discharge:: 20 Patient Condition:: Good Medical Necessity - Tobacco Use Smoking Status: Never smoker Meaningful Use Info Meaningful Use Diagnoses (Choose all that apply): None applicable
[2019-09-29] MEDS: Prenatal Vits Tablet 1 TABLET PO (11:22)
[2019-09-29] MEDS: Ibuprofen 600 MG Tablet PO (11:23)
[2019-09-29 11:30] VITALS: BP 126/70; PULSE 64; RESP 16; TEMP 36.6
== END 2019-09-29 12:50 | disposition home or self-care (01) | DRG 788 ==
PROVIDERS: Admitting Provider Obstetrics & Gynecology; PCP Student in an Organized Health Care Education/Training Program; Visit Provider Obstetrics & Gynecology
PROC: 10D00Z1 Extraction of Products of Conception, Low, Open Approach (ICD-10-PCS; CPT 59514; principal; 2019-09-27 07:15)
DX: O34.211 Maternal care for low transverse scar from previous cesarean delivery (principal); O69.2XX0 Labor and delivery complicated by other cord entanglement, with compression, not applicable or unspecified; Z3A.39 39 weeks gestation of pregnancy; Z37.0 Single live birth; O99.52 Diseases of the respiratory system complicating childbirth; J30.2 Other seasonal allergic rhinitis
CPT/HCPCS: 85025; 85027; 86850; 86900; 86901; 99218; 99251; J7120; A4216; G0378; G0463; J2405

== ENCOUNTER → 2020-11-19 11:30 | Outpatient (CLI) | payer OTHER, SELFPAY ==
[2019-09-27 05:41] VITALS: BMI 27.8
[2020-11-22 20:33] LABS: HPV Reflexed? NOT INDICATED
== END ==
PROVIDERS: PCP Student in an Organized Health Care Education/Training Program; Visit Provider Obstetrics & Gynecology
DX: Z12.4 Encounter for screening for malignant neoplasm of cervix (principal)
CPT/HCPCS: 88175; G0145

== ENCOUNTER 2023-05-03 13:08 | Emergency (ER) | payer OTHER, SELFPAY ==
[2023-05-03 13:11] VITALS: BP 111/66; PULSE 68; RESP 18; TEMP 36.2; O2SAT 100; BMI 24.0
[2023-05-03 14:00] LABS: Bacteria 0 SEEN /hpf (None Seen); Mucous, Urine 0 SEEN /hpf (<or=2+); Red Blood Cells-Urine 0 SEEN /hpf (0-5); Squamous Epithelial Cells - UA 0 SEEN /hpf (5-10); White Blood Cells 0 SEEN /hpf (0-5)
[2023-05-03 14:02] LABS: Color, Urine Yellow (Yellow); Glucose, Dipstick Normal (Normal); Ketone-Dipstick Negative (Negative); Leukocyte Esterase-Dipstick Negative /ul (Negative); Nitrite-Dipstick Negative (Negative); Occult Blood-Urine Negative /ul (Negative); Protein-Dipstick Negative (Negative); Specific Gravity, Urine 1.005 (1.002-1.030); Urine Bilirubin Dipstick Negative (Negative); Urine Clarity Clear (Clear); Urine Urobilinogen Normal (Normal)
[2023-05-03 14:25] LABS: Internal QC Validated? YES +Cl - CLEAR BKGD; Pregnancy, Urine Negative Negative
[2023-05-03 14:39] LABS: Absolute Lymphocyte Count 1.36 X10^3/uL (0.83-4.51); Absolute Neutrophil Count 3.9 X10^3/uL (2.0-7.7); Basophil# 0.04 X10^3/uL; Basophil% 0.7 % (0-1); Eosinophils% 1.7 % (0-5); Hematocrit 36.6 % (37-47); Hemoglobin 11.5 g/dL (12.0-15.0); Lymphocyte # 1.36 X10^3/ul (0.83-4.51); Lymphocyte % 23.6 % (19-41); Mean Corp Hgb Conc 31.4 g/dL (32-36); Mean Corpuscular Hgb 26.9 pg (27.0-32.0); Mean Corpuscular Volume 85.5 fL (81-99); Mean Platelet Vol. 9.3 fl (6.2-12.0); Monocyte# 0.39 X10^3/uL; Monocyte% 6.8 % (0-10); NRBC Flagged by Analyzer 0 % (0-5); Neutrophil # 3.86 X10^3/uL (2.7-7.7); Platelet Count 285 K/mm3 (150-450); RBC Distribution Width CV 13.7 % (11.6-14.6); RBC Distribution Width SD 42.7 fl (35.1-43.9); Red Blood Count 4.28 M/mm3 (4.2-5.4); White Blood Count 5.8 K/mm3 (4.4-11.0)
--- NOTE | 2023-05-03 14:47 | ED.VIS.GI ---
HPI HPI - GI History of Present Illness Chief Complaint: Flank Pain Narrative Narrative: 37-year-old female presenting with right-sided abdominal pain/flank pain. She states it started a couple of weeks ago. The pain has been intermittent. The pain is not associated with food. She has history of kidney stones but states it did not feel similar. She has not had any nausea or vomiting. No diarrhea or constipation. No fever or chills. No urinary or vaginal complaints. Patient states her only abdominal surgeries were C-sections. She states that the pain is worse with movement and twisting of her trunk. It is better when she is resting. PFSH PFS Home Medications bupropion HCl 150 mg 24 hr tablet, extended release 150 mg PO DAILY 05/03/23 [History Last Taken Unknown] Allergy/AdvReac Type Severity Reaction Status Date / Time mejia Allergy Anaphylaxis Verified 05/03/23 13:11 atomoxetine [From Strattera] AdvReac Nausea Verified 05/03/23 13:11 Social History Smoking Status: Never smoker ROS ROS ED Constitutional Constitutional ED: Denies chills, fever(s) or sweats Eyes Eyes: Denies blurry vision or change in vision ENT ENT ED: Denies ear pain or sore throat Cardiovascular Cardiovascular: Denies chest pain, palpitations or racing heartbeat Respiratory/Chest Respiratory/Chest: Denies cough, dyspnea or sputum Gastrointestinal Gastrointestinal: Reports abdominal pain; Denies constipation, diarrhea, nausea or vomiting Genitourinary Genitourinary ED: Denies dysuria, hematuria or urinary frequency Musculoskeletal Musculoskeletal: Denies arthralgias, myalgias or neck pain Integumentary Denies abscess, Abrasions or rash Neurologic Neurologic: Denies headache(s), paresthesias or weakness Psychiatric Psychiatric: Denies anxiety, depression, suicidal ideation or suicidal thoughts Endocrine Endocrinology: Denies polydipsia or polyuria EXAM Physical Exam Const Vital Signs: 05/03/23 13:11 Temperature 97.1 F L Temperature Source Temporal Pulse Rate 68 Respiratory Rate 18 Blood Pressure 111/66 Blood Pressure Mean 81 Pulse Ox 100 Oxygen Delivery Method Room Air Positive well nourished and well developed General Appearance ED: well developed; Negative for pallor HEENT normocephalic and atraumatic Eyes PERRL and EOMs intact bilaterally Resp normal respiratory effort Cardio regular rate and regular rhythm GI non-tender and non-distended Palpation: soft; Negative for guarding Back/Spine no CVA tenderness Neuro CN's II-XII intact bilaterally, moves all extremities and no sensory deficits noted Sensorium / Orientation: alert Motor Exam: strength 5/5 throughout and general weakness Psych mental status grossly normal and thought process normal Skin no wounds General Skin Exam: Negative for jaundice or pallor MDM MDM MDM Narrative Medical decision making narrative: Patient presenting with right-sided abdominal pain. She does not have any CVA tenderness on examination. She does not have any abdominal tenderness on examination. She reports the pain is worse with movement. Differential includes UTI, pyelonephritis, colitis, diverticulitis, constipation, kidney stone. CBC will be obtained to assess white blood cell count, hemoglobin, platelets. CMP to assess liver function, renal function, electrolytes. Lipase to rule out pancreatitis. Urinalysis to assess for UTI. hCG to assess for . All of her blood work appears normal. Urinalysis negative for infection. test negative. Patient was initially medicated with Toradol. Went back to discuss the normal work-up at this point patient expressed concern that she has ongoing pain so we did obtain a CT of the abdomen pelvis with IV contrast. This shows no acute findings per radiology although I do note that she has a lot of stool in the right upper quadrant and a lot of retained stool elsewhere. I counseled the patient that likely her pain is due to constipation and/or bowel gas. Patient start MiraLAX daily for the next 3 days. I do not believe she needs any narcotic pain medication. Return precautions were discussed. Impression: 1. Abdominal pain 2. Constipation Lab Data Attestation: I reviewed the patient's lab results. Labs: Laboratory Results - last 24 hr 05/03/23 05/03/23 13:50 14:30 WBC 5.8 RBC 4.28 Hgb 11.5 L Hct 36.6 L MCV 85.5 MCH 26.9 L MCHC 31.4 L RDW Std Deviation 42.7 RDW Coeff of Cristina 13.7 Plt Count 285 MPV 9.3 Immature Gran % (Auto) 0.200 Neut % (Auto) 67.0 Lymph % (Auto) 23.6 [place] % (Auto) 6.8 Eos % (Auto) 1.7 Baso % (Auto) 0.7 Absolute Neuts (auto) 3.9 Absolute Lymphs (auto) 1.36 Nucleated RBC % 0 Sodium 138 Potassium 4.1 Chloride 109 H Carbon Dioxide 26.0 Anion Gap 3 L BUN 7 Creatinine 0.83 Estim Creat Clear Calc 85.13 Est GFR (MDRD) Af Amer 100 Est GFR (MDRD) Non-Af 83 BUN/Creatinine Ratio 8.4 L Glucose 89 Calcium 8.7 Total Bilirubin 0.30 AST 22 ALT 24 Alkaline Phosphatase 50 Total Protein 6.8 Albumin 3.8 Globulin 3.0 Albumin/Globulin Ratio 1.3 Lipase 43 Urine Color Yellow Urine Clarity Clear Urine pH 7.0 Ur Specific [place] 1.005 Urine Protein Negative Urine Glucose (UA) Normal Urine Ketones Negative Urine Occult Blood Negative Urine Nitrite Negative Urine Bilirubin Negative Urine Urobilinogen Normal Ur Leukocyte Esterase Negative Urine RBC 0 SEEN Urine WBC 0 SEEN Ur Squamous Epith Cells 0 SEEN Urine Bacteria 0 SEEN Urine Mucus 0 SEEN Urine Test Negative Radiography Diagnostic Testing: Clinical Impression(s) from Imaging Studies Abdomen/Pelvis CT 05/03/23 15:18 IMPRESSION: Normal enhanced CT of the abdomen and pelvis. Electronically Signed: David Dumont MD at 16:45 EDT , Discharge Plan Triage Chief Complaint: Flank Pain ED Provider: Gilberto Ramsay Dx/Rx/DC Orders Instructions: ED Constipation (Adult) Prescriptions: No Action bupropion HCl 150 mg tablet extended release 24 hr 150 mg PO DAILY Primary Care Provider: Lul Manzano Referrals: Lul Manzano, DO [Primary Care Provider] - Disposition Disposition: Home, Self Care
[2023-05-03] MEDS: Ketorolac 15 MG/ML Vial IV (14:48)
[2023-05-03 14:56] LABS: ALB/GLOB Ratio 1.3 RATIO (0.9-2.4); AST(SGOT) 22 U/L (15-37); Alanine Aminotransfer ALT/SGPT 24 U/L (13-56); Albumin, Serum 3.8 g/dL (3.2-5.0); Alkaline Phosphatase 50 U/L (45-117); Anion Gap 3 (5-15); BUN 7 mg/dL (7-18); BUN/Creat Ratio 8.4 RATIO (10-20); Calcium,Total 8.7 mg/dL (8.5-10.1); Chloride 109 mmol/L (98-107); Creatinine, Serum 0.83 mg/dL (0.55-1.02); EST Glomerular Filtration Rate 83 mL/min (>60); Est Glom Filt Rate - Afr Amer 100 mL/min (>60); Estimated Creatinine Clearance 85.13 ml/min; Glucose 89 mg/dL (74-106); Lipase 43 U/L (13-75); Potassium 4.1 mmol/L (3.5-5.1); Protein, Total 6.8 g/dL (6.4-8.2); Sodium Level 138 mmol/L (136-145)
--- NOTE | 2023-05-03 15:18 | CT_ITS ---
STUDY: CT ABDOMEN AND PELVIS WITH CONTRAST REASON FOR EXAM: Female, 37 years old. right flank pain x 2 weeks radiating to left, prior x 2. RADIATION DOSAGE (If Supplied By Facility): CTDIvol = ( 13.53 ) mGy, DLP = ( 559.13 ) mGycm TECHNIQUE: Transaxial images were obtained from the dome of the diaphragm to the symphysis pubis without oral contrast. IV 100mL Isovue-370 was administered. Sagittal and coronal images were reconstructed. Individualized dose optimization techniques were used for this CT. COMPARISON: 05/04/2017 FINDINGS: The visualized lung bases are unremarkable. The visualized portions of the heart are within normal limits. Normal liver. Normal gallbladder and extrahepatic biliary system. Normal spleen. Normal pancreas. Normal bilateral adrenal glands. Normal right kidney. Normal left kidney. Normal visualized stomach. Normal small intestine. Normal colon. The appendix is visualized and appears normal. Normal abdominal aorta. Normal inferior vena cava. Normal retroperitoneum. Normal urinary bladder. There is a small umbilical hernia containing fat. Normal osseous structures. CT/Abdomen/Pelvis W IV Cont ONLY IMPRESSION: Normal enhanced CT of the abdomen and pelvis. Electronically Signed: David Dumnot MD at 16:45 EDT ,
== END 2023-05-03 17:08 | disposition home or self-care (01) ==
PROVIDERS: Emergency Provider Student in an Organized Health Care Education/Training Program; PCP Student in an Organized Health Care Education/Training Program; Visit Provider Student in an Organized Health Care Education/Training Program
DX: R10.9 Unspecified abdominal pain (principal); K59.00 Constipation, unspecified
CPT/HCPCS: 74177; 80053; 81001; 81025; 83690; 85025; 96374; 99283; Q9967; A4216